=== PATIENT | female | born 1970 | race African-American/Black ===

== ENCOUNTER 2019-03-19 13:47 | Emergency (ER) | payer OTHER, MEDICAID ==
[~2019-03-19] VITALS: Ht 165.1 cm; Wt 95.0 kg
[~2019-03-19 13:47] MED LIST: ADVAIR INHALER INH; AMLO10TA80 PO; COZAAR; CYM20 MT; FURO-152 PO; GABA-533 PO; METO1TAB26 MT; NAPR-681 MT; NORT50CA PO; OMEP20CA5 PO; TRAZ-251 PO
[2019-03-19] MEDS ORDERED: SODIUM CHLORIDE 0.9% 1,000 ML IV ONE (15:09)
[2019-03-19] MEDS ORDERED: FENTANYL CITRATE/PF 50MCG/ML 2ML VIAL IV ONE (15:15)
[2019-03-19] MEDS ORDERED: DIAZEPAM 5 MG TABLET PO ONE (15:15)
[2019-03-19] MEDS ORDERED: KETOROLAC 30MG/ML VIAL IV ONE (15:15)
[2019-03-19] MEDS ORDERED: ONDANSETRON HCL 4MG/2ML INJ IV ONE (15:15)
[2019-03-19 15:41] LABS: BASOPHILS % 0.3 % (0.0-2.0); EOSINOPHILS % 2.6 % (0.0-5.0); HEMATOCRIT. 34.8 % (36.0-48.0); HEMOGLOBIN. 10.7 g/dL (12.0-16.0); LYMPHOCYTES % 8.6 % (20.0-50.0); MEAN CORPUSCULAR HEMOGLOBIN 24.4 pg (28.0-32.0); MEAN CORPUSCULAR VOLUME 79.2 fL (81.0-99.0); MEAN PLATELET VOLUME 8.1 fl (7.4-10.4); MONOCYTES % 5.2 % (2.0-8.0); NEUTROPHILS % 83.3 % (40.0-76.0); PLATELET 304 x1000/uL (130-400); RED BLOOD CELL COUNT 4.39 mill/uL (4.2-5.4); RED CELL DISTRIBUTION WIDTH 19.2 % (11.6-14.6)
[2019-03-19 15:47] LABS: CHLORIDE 93 mEq/L (98-107)
[2019-03-19 15:56] LABS: CREATINE KINASE 473 IU/L (26-192)
[2019-03-19 16:20] LABS: HCG SCREEN POSITIVE
[2019-03-19 17:18] LABS: CLARITY URINE CLOUDY (CLEAR); COLOR URINE YELLOW (YELLOW); KETONES URINE NEGATIVE (NEGATIVE); LEUKOCYTE ESTERASE URINE 1+ (NEGATIVE); NITRITE URINE NEGATIVE (NEGATIVE); OCCULT BLOOD URINE NEGATIVE (NEGATIVE); PROTEIN URINE NEGATIVE (NEGATIVE); SPECIFIC GRAVITY URINE 1.015 (1.005-1.030)
[2019-03-19 18:03] VITALS: BP 147/91
== END 2019-03-19 17:26 | disposition short-term general hospital (02) ==
LOC: ER 13:47
DX: M54.5 Low back pain (principal); M54.30 Sciatica, unspecified side; J45.909 Unspecified asthma, uncomplicated; I11.0 Hypertensive heart disease with heart failure; I50.9 Heart failure, unspecified
CPT/HCPCS: 36415; 71045; 80053; 81003; 81025; 82550; 82553; 84484; 84703; 85025; 93005; 96374; 96375; 99291; J1885; J2405; J3010; J7030; A4315

== ENCOUNTER 2019-05-03 23:06 | Emergency (ER) | payer OTHER, MEDICAID ==
[~2019-05-03] VITALS: Ht 165.1 cm; Wt 86.0 kg
[2019-05-04] MEDS ORDERED: ONDANSETRON HCL 4MG/2ML INJ IV STA (00:01)
[2019-05-04] MEDS ORDERED: MORPHINE SULFATE 4 MG/ML CPJ (NOT FOR IM USE) IV STA ×2 (00:01→02:58)
[2019-05-04] MEDS ORDERED: DIAZEPAM 5 MG/ML 2ML CPJ IV ONE (00:15)
[2019-05-04 00:21] LABS: BASOPHILS % 0.7 % (0.0-2.0); EOSINOPHILS % 6.7 % (0.0-5.0); HEMATOCRIT. 43.5 % (36.0-48.0); HEMOGLOBIN. 13.6 g/dL (12.0-16.0); LYMPHOCYTES % 12.9 % (20.0-50.0); MEAN CORPUSCULAR HEMOGLOBIN 22.9 pg (28.0-32.0); MEAN CORPUSCULAR VOLUME 73.2 fL (81.0-99.0); MEAN PLATELET VOLUME 8.9 fl (7.4-10.4); MONOCYTES % 5.3 % (2.0-8.0); NEUTROPHILS % 74.4 % (40.0-76.0); PLATELET 285 x1000/uL (130-400); RED BLOOD CELL COUNT 5.94 mill/uL (4.2-5.4); RED CELL DISTRIBUTION WIDTH 24.2 % (11.6-14.6)
[2019-05-04 00:27] LABS: CHLORIDE 98 mEq/L (98-107)
[2019-05-04 00:36] LABS: PLATELET ESTIMATE NORMAL
[2019-05-04 06:29] VITALS: BP 155/97
== END 2019-05-04 06:37 | disposition short-term general hospital (02) ==
LOC: ER 23:24
DX: M54.9 Dorsalgia, unspecified (principal); M79.604 Pain in right leg; J45.909 Unspecified asthma, uncomplicated; I11.0 Hypertensive heart disease with heart failure; I50.9 Heart failure, unspecified
CPT/HCPCS: 36415; 80048; 85025; 96374; 96375; 96376; 99285; J2270; J2405

== ENCOUNTER 2020-09-10 08:30 | Emergency (ER) | payer OTHER, MEDICAID ==
[~2020-09-10] VITALS: Ht 162.6 cm; Wt 63.0 kg
[~2020-09-10 08:30] MED LIST changes: +OMEP20CA14 PO; -OMEP20CA5 PO
[2020-09-10] MEDS ORDERED: OXYCODONE HCL/ACETAMINOPHEN 5/325MG TABLET PO ONE (09:00)
[2020-09-10] MEDS ORDERED: KETOROLAC 30MG/ML VIAL IV ONE (09:00)
[2020-09-10] MEDS ORDERED: T3 PO (10:44)
[2020-09-10] MEDS ORDERED: IBUP-2028 MT (10:44)
[2020-09-10 11:57] VITALS: BP 129/88
== END 2020-09-10 12:00 | disposition home or self-care (01) ==
LOC: ER 08:41
DX: M54.5 Low back pain (principal); G89.29 Other chronic pain; I11.0 Hypertensive heart disease with heart failure; I50.9 Heart failure, unspecified; J44.9 Chronic obstructive pulmonary disease, unspecified
CPT/HCPCS: 93005; 96374; 99283; J1885

== ENCOUNTER 2021-08-21 15:05 | Emergency (ER) | payer OTHER, MEDICAID ==
[~2021-08-21] VITALS: Ht 165.1 cm; Wt 87.0 kg
[~2021-08-21 15:05] MED LIST changes: +IBUP-2028 MT; +T3 PO
[2021-08-21 15:17] VITALS: BP 123/76
[2021-08-21] MEDS ORDERED: SULF1TAB48 MT (16:13)
[2021-08-21] MEDS ORDERED: CEPH500C2 MT (16:13)
[2021-08-21] MEDS ORDERED: TOPUD PO (16:13)
[2021-08-21] MEDS ORDERED: IBUP-2028 MT (16:14)
[2021-08-21] MEDS ORDERED: ONDANSETRON 4MG ODT PO ONE (16:30)
== END 2021-08-21 19:10 | disposition home or self-care (01) ==
LOC: ER 15:05
DX: U07.1 COVID-19 (principal); L03.115 Cellulitis of right lower limb; E11.9 Type 2 diabetes mellitus without complications; I11.0 Hypertensive heart disease with heart failure; I50.9 Heart failure, unspecified; J44.9 Chronic obstructive pulmonary disease, unspecified; Z87.891 Personal history of nicotine dependence
CPT/HCPCS: 99283; C9803; Q0162; U0003; U0005